=== PATIENT | male | born 1960 | race Caucasian/White ===

== ENCOUNTER 2018-09-18 22:02 | Emergency (ER) | payer BC ==
[2018-09-18] MEDS ORDERED: Adacel (T-DAP) 0.5 ML SYRINGE ONE (22:42)
--- NOTE | 2018-09-18 22:51 | RAD ---
2 views right humerus. HISTORY: Fall. Right humeral pain AP and lateral views right humerus demonstrates no evidence of right humeral fractures, subluxations or bony lesions. IMPRESSION: Normal AP and lateral views right humerus.
--- NOTE | 2018-09-18 22:53 | RAD ---
3 views right shoulder history: Right shoulder pain after fall. AP internally, externally scapular Y views right shoulder obtained. 3 views right shoulder demonstrates no evidence of right shoulder fractures, subluxations or bony les ions. IMPRESSION: Normal 3 views right shoulder.
== END 2018-09-18 23:10 | disposition home or self-care (01) ==
LOC: SCSER 22:02
DX: S43.401A Unspecified sprain of right shoulder joint, initial encounter (principal); S00.01XA Abrasion of scalp, initial encounter; S20.411A Abrasion of right back wall of thorax, initial encounter; T14.8XXA Other injury of unspecified body region, initial encounter; I10 Essential (primary) hypertension; Z79.899 Other long term (current) drug therapy; W19.XXXA Unspecified fall, initial encounter
CPT/HCPCS: 90471; 90715

== ENCOUNTER 2019-01-13 09:49 | Emergency (ER) | payer BC | END 2019-01-13 10:35 | disposition home or self-care (01) | LOC: SCSER 09:49 | DX: L03.114 Cellulitis of left upper limb (principal); I10 Essential (primary) hypertension; Z79.899 Other long term (current) drug therapy | CPT/HCPCS: 99283 ==

== ENCOUNTER 2019-03-03 06:20 | Outpatient (CLI) | payer BC ==
[2019-03-03 10:54] LABS: #Eosinphils 0.2 thou/uL (0.0-0.7); #Lymphocytes 2.5 thou/uL (1.20-3.40); #Monocytes 0.6 thou/uL (0.11-0.59); #Neutrophils 3.4 thou/uL (1.40-6.50); %Basophils 0.4 % (0.0-1.0); %Eosinophils 2.7 % (0.0-10.0); %Monocytes 8.7 % (0.0-10.0); %Neutrophils 51.2 % (42.0-75.0); Hemoglobin 14.5 g/dL (14.0-18.0); Mean Corpuscular HGB CONC 33.1 g/dL (32.0-36.0); Mean Corpuscular Hemoglobin 30.2 pg (27.0-31.0); Mean Corpuscular Volume 91.3 fL (78.0-98.0); Mean Platelet Volume 7.4 fL (7.4-10.4); Platelet Count 311 thou/uL (130-400); RBC Distribution Width 12.1 % (11.5-14.5); Red Blood Cell (RBC) Count 4.78 mill/uL (4.70-6.10); White Blood Cell (WBC) Count 6.7 thou/uL (4.8-10.8)
[2019-03-03 11:06] LABS: Bacteria/HPF None Seen HPF (None Seen); Bilirubin Negative (Negative); Blood, Urine Negative (Negative); Clarity Clear (Clear); Glucose, Urine (Dipstick) Normal (Negative); Leukocyte Negative Leu/uL (Negative); Nitrite Negative (Negative); Protein, Urine (Dipstick) Negative (Neg-Trace); RBC/HPF 0-3 HPF (0-3); Squamous Epithelial 0-3 HPF (0-3); Urobilinogen Normal mg/dL (Less than 2); WBC/HPF 0-3 HPF (0-3)
[2019-03-03 11:17] LABS: Anion Gap 14 mmol/L (10-20); BUN (Urea Nitrogen) 11 mg/dL (8.4-25.7); Calc. Creatinine Clearance 0 mL/min (70-130); Calcium 9.7 mg/dL (7.8-10.44); Carbon Dioxide 24 mmol/L (22-29); Chloride 106 mmol/L (98-107); Estimated GFR-MDRD 88; Glucose 95 mg/dL (70-105); Potassium 4.1 mmol/L (3.5-5.1); Sodium 140 mmol/L (136-145)
--- NOTE | 2019-03-03 17:26 | EKG ---
Test Reason : Blood Pressure : / mmHG Vent. Rate : 076 BPM Atrial Rate : 076 BPM P-R Int : 118 ms QRS Dur : 086 ms QT Int : 368 ms P-R-T Axes : 026 018 -04 degrees QTc Int : 414 ms Normal sinus rhythm Minimal voltage criteria for LVH, may be normal variant Nonspecific ST-T changes When compared with ECG of 15-MAY-2004 17:06, Vent. rate has decreased BY [address] Dawna KAN ([id number]) on 03/03/2019 5:26:08 PM Referred By: NORMAN Confirmed By:DR. Dawna KAN
== END 2019-03-03 06:21 | disposition home or self-care (01) ==
LOC: LABBT 06:20
PROVIDERS: ATTEND Orthopaedic Surgery
DX: Z01.818 Encounter for other preprocedural examination (principal); M17.12 Unilateral primary osteoarthritis, left knee
CPT/HCPCS: 80048; 81001; 85025; 85610; 87081; 93005; 93010

== ENCOUNTER 2019-03-03 08:45 | Inpatient (IN) | payer BC ==
[2019-03-03 09:13] VITALS: BMI 48.6
[2019-03-15] MEDS ORDERED: Sodium Chloride 0.9% 100 ML ONE (05:53)
[2019-03-15] MEDS ORDERED: Tranexamic Acid 1,000 MG/10 ML VIAL ONE (05:53)
[2019-03-15] MEDS ORDERED: Midazolam HCl 2 mg/2 ml Vial ONE (06:02)
[2019-03-15] MEDS ORDERED: Fentanyl 100 MCG/2 ML VIAL ONE ×5 (06:02→09:28)
[2019-03-15] MEDS ORDERED: Lidocaine 1% (PF) 30 ML VIAL ONE (06:30)
[2019-03-15] MEDS ORDERED: Promethazine HCl 25 MG/ML VIAL IM PRN ×3 (06:40→10:17)
[2019-03-15] MEDS ORDERED: Ondansetron PF 4 MG/2 ML Vial IVP PRN ×2 (06:40→06:52)
[2019-03-15] MEDS ORDERED: traMADol HCl 50 MG TAB PO PRN ×2 (06:40)
[2019-03-15] MEDS ORDERED: Zolpidem Tartrate 5 MG TAB PO PRN ×2 (06:40→06:52)
[2019-03-15] MEDS ORDERED: Ropivacaine HCl/PF 250 ML in Premix Bag 1 BAG NERVE BLCK SCH (06:40)
[2019-03-15] MEDS ORDERED: HYDROcodone/Acetaminophen 10/325 mg Tablet PO PRN ×2 (06:40)
[2019-03-15] MEDS ORDERED: Fentanyl 100 MCG/2 ML VIAL IV PRN (06:41)
[2019-03-15] MEDS ORDERED: Acetaminophen 325 MG TAB PO PRN (06:52)
[2019-03-15] MEDS ORDERED: diphenhydrAMINE 25 MG CAP PO PRN (06:52)
[2019-03-15] MEDS ORDERED: Non-Formulary Item 1 EACH (Phentermine Hcl [Phentermine Hcl] 37.5 MG) PO SCH (09:00)
[2019-03-15] MEDS ORDERED: PHENTERMINE HCL 37.5 MG PO SCH (09:00)
--- NOTE | 2019-03-15 09:24 | RAD ---
XR Knee Lt 2 View History: Postop total knee Comparison: None. Findings: Satisfactory appearance left total knee arthroplasty and patellar resurfacing. Expected pos toperative gas and edema. Impression: Satisfactory postoperative appearance.
[2019-03-15] MEDS ORDERED: PROPOFOL 200 MG/20 ML VIAL ONE (10:14)
[2019-03-15] MEDS ORDERED: Lidocaine 1% PF 5 ML VIAL ONE (10:14)
[2019-03-15] MEDS ORDERED: Metoclopramide HCl 10 MG/2 ML VIAL ONE (10:14)
[2019-03-15] MEDS ORDERED: Ropivacaine 0.5% HCl/PF (150 MG/30 ML VIAL) ONE (10:14)
[2019-03-15] MEDS ORDERED: Dexamethasone 20 MG/5 ML VIAL ONE (10:14)
[2019-03-15] MEDS ORDERED: Ropivacaine 0.2% HCl/PF (40 MG/20 ML VIAL) ONE (10:14)
[2019-03-15] MEDS ORDERED: PHENYLEPHRINE-NS 100 MCG/ML 10 ML SYRINGE ONE (10:14)
[2019-03-15] MEDS ORDERED: Ondansetron PF 4 MG/2 ML Vial ONE (10:14)
[2019-03-15] MEDS ORDERED: PACU-Morphine 4MG/ML VIAL SLOW IVP PRN (10:17)
[2019-03-15] MEDS ORDERED: Promethazine HCl 25 MG/ML VIAL SLOW IVP PRN (10:17)
[2019-03-15] MEDS ORDERED: Ondansetron HCl/PF 4 MG/2 ML Vial IVP PRN (10:17)
[2019-03-15] MEDS: Sodium Chloride 0.9% 1,000 ML IV SCH ×2 (10:59→17:35)
[2019-03-15] MEDS: Multivitamin W/ Minerals 1 TAB PO SCH (10:59)
[2019-03-15] MEDS: Senokot S 8.6-50 MG TAB PO SCH ×2 (10:59→20:27)
[2019-03-15] MEDS: Ferrous Gluconate 324 MG TAB PO SCH ×2 (10:59→20:27)
[2019-03-15] MEDS: Aspirin 81 mg Enteric Coated Tablet PO SCH ×2 (10:59→20:27)
[2019-03-15] MEDS: Ketorolac Tromethamine 30 MG/ML VIAL IVP SCH ×3 (11:27→23:26)
--- NOTE | 2019-03-15 13:00 | PDOC.HOSPP ---
- Subjective Encounter Date: 03/15/19 Encounter Time: 12:30 Subjective: pt up in bed has some pain to his left knee. - Objective Vital Signs & Weight: Vital Signs (12 hours) Temp Pulse Resp BP Pulse Ox 03/15/19 11:15 96.8 F L 73 16 145/86 H 98 03/15/19 11:00 95 Weight Weight 320 lb Hospitalist ROS - Review of Systems Respiratory: denies: cough, dry, shortness of breath, hemoptysis, SOB with excertion, pleuritic pain, sputum, wheezing, other Cardiovascular: denies: chest pain, palpitations, orthopnea, paroxysmal noc. dyspnea, edema, light headedness, other Gastrointestinal: denies: nausea, vomiting, abdominal pain, diarrhea, constipation, melena, hematochezia, other - Medication Medications: Active Medications Generic Name Dose Route Start Last Admin Trade Name Freq PRN Reason Stop Dose Admin Aspirin 81 mg 03/15/19 09:00 03/15/19 10:59 Ecotrin PO Not Given BID [facility] Ferrous Gluconate 324 mg 03/15/19 09:00 03/15/19 10:59 Fergon PO Not Given BID [facility] Sodium Chloride 1,000 mls @ 100 mls/hr 03/15/19 07:00 03/15/19 10:59 Normal Saline 0.9% IV Not Given .Q10H [facility] Iron/Minerals/Multivitamins 1 tab 03/15/19 09:00 03/15/19 10:59 Theragran M PO Not Given DAILY [facility] Ketorolac Tromethamine 30 mg 03/15/19 12:00 03/15/19 11:27 Toradol IVP 03/17/19 06:01 30 mg Q6HR [facility] Administration Senna/Docusate Sodium 2 tab 03/15/19 09:00 03/15/19 10:59 Senokot S PO Not Given BID [facility] Sodium Chloride 10 ml 03/15/19 09:00 03/15/19 11:00 Flush - Normal Saline IVF Not Given Q12HR [facility] - Exam Neck: negative: supple, symmetric, no JVD, no thyromegaly, no lymphadenopathy, no carotid bruit, JVD Heart: negative: RRR, no murmur, no gallops, no rubs, normal peripheral pulses, irregular, diminshed peripheral pulses, murmur present, II/IV, III/IV Respiratory: negative: CTAB, no wheezes, no rales, no ronchi, normal chest expansion, no tachypnea, normal percussion, rales, rhonchi, tachypneic, wheezes Hosp A/P (1) HTN (hypertension) Code(s): I10 - ESSENTIAL (PRIMARY) HYPERTENSION Status: Acute (2) Obesity Code(s): E66.9 - OBESITY, UNSPECIFIED Status: Acute (3) Hyperlipidemia Code(s): E78.5 - HYPERLIPIDEMIA, UNSPECIFIED Status: Acute - Plan will continue home meds. asa for dvt ppx. pt does not use cpap at night.
[2019-03-15] MEDS ORDERED: CEFAZOLIN 2 GM in Premix Bag 1 BAG IVPB SCH (14:00)
--- NOTE | 2019-03-15 14:59 | OP ---
DATE OF PROCEDURE: 03/15/2019 PREOPERATIVE DIAGNOSIS: End-stage tricompartmental osteoarthritis, left knee. POSTOPERATIVE DIAGNOSIS: End-stage tricompartmental osteoarthritis, left knee. PROCEDURE PERFORMED: Cemented cruciate-sparing computer-assisted navigated left total knee arthroplasty. CAFE COOK: Silviano Hernández PA-C. ANESTHESIA: General via LMA augmented with indwelling adductor canal block and a single-shot sciatic block. COMPONENTS USED: [employer] Triathlon size 5 cemented cruciate-sparing femoral component with a primary cemented size 5 tibial baseplate, 9 mm polyethylene fixed bearing insert, A29 patella button. TOURNIQUET TIME: 51 minutes. ESTIMATED BLOOD LOSS: Less than 100. INPUT: 1100 mL of crystalloid. OUTPUT: None measured. No Ross placed. DRAINS: None. SPECIMENS: None. COMPLICATIONS: None. COUNTS: Severe degenerative tricompartmental disease, [id number] arthrosis, periarticular osteophyte formation, large serous effusion, hypertrophic synovium and changes consistent with degenerative genu varum. INDICATION FOR SURGERY: Baljeet is a 59-year-old white male, who has had progressive left knee pain and problems with standing and walking for the last 5 to 7 years. He has failed conservative management and elected to proceed with total knee arthroplasty as definitive treatment. PROCEDURE IN DETAIL: After informed consent was obtained in the preoperative holding area, the patient was taken to the operative suite where general anesthesia was induced. Once adequate level of general anesthesia was obtained, the patient was positioned and a well-padded tourniquet was placed around the left proximal thigh. The left lower extremity was then prepped and draped in the usual sterile fashion. Prior to exsanguination, a time-out was called and all members of the surgical team agreed upon site, surgeon, and patient. The extremity was then exsanguinated and the tourniquet was raised. A midline longitudinal incision was then made directly over the patella extending 2 fingerbreadths above the superior pole of the patella and 2 fingerbreadths inferior to the inferior patellar pole of the patella. Deeper subcutaneous layers were dissected sharply and local bleeding was controlled with Bovie electrocautery. A quad tendon longitudinal split was then made sharply and a median parapatellar arthrotomy was carried out both sharp and with Bovie electrocautery, carried down to 1 fingerbreadth medial to the tibial tubercle. The knee was then placed into flexion and the patella was everted nicely, and a copious fat pad ectomy was performed allowing for greater exposure of the tibia. The computer-assisted distal femoral fiducial was then placed and pinned firmly, and the distal femoral cutting guide was pinned firmly into place. The oscillating saw was then used to remove the appropriate amount of bone. The 4-in-1 cutting block was then placed on the distal femur and the oscillating saw was used to remove the appropriate amount of bone off the anterior, posterior, and chamfer cuts. After completion of bone cuts, the anterior cruciate ligament was resected sharply and the posterior cruciate ligament retractor was placed and the tibia was subluxed for better exposure. Partial meniscectomies were carried out, and the tibial computer-assisted fiducial was pinned, and the cutting guide was placed. Oscillating saw was then used to remove the bone, with Hohmann retractors used to take care and protect the collateral ligaments. After the tibial resection was performed, a laminar beauty parlor cleaner was placed in between the freshened bone cuts. The knee placed at 90 degrees and further bilateral meniscectomies were carried out, and the curved osteotome and curettage were used to remove any excess bone spurs in the posterior compartment. The trial femoral component, tibial baseplate were placed with the appropriate polyethylene trial insert with an appropriate polyethylene spacer and patellar button. The knee was taken through full range of motion with flexion and extension from 0 to 90 degrees and patellar broach squarely in the trochlea without any squinting or subluxation noted. The knee was also stable to varus and valgus stressing at 0, 15, 45, and 90 degrees of flexion. The drawer was negative. All trial components were then removed and the keel punch was used to provide the appropriate defect in the tibia with a mallet. The freshened bone cuts were copiously irrigated with pulsatile lavage of about 1.5 L to remove all excess debris. The freshened bone cuts were then dried with suction and lap sponge. The knee was placed in flexion and retractors were placed to provide access to all bone cuts. Tobramycin-impregnated methyl methacrylate cement was then placed on the freshened bone cuts and implants which were malleted firmly into place. Curettage and [place] elevators were used to remove any excess bone cement. The knee was placed into full extension and the patellar button was placed under compression, and the cement was allowed to cure. Once completed, the components were again taken through full range of motion and copious irrigation of the knee was carried out with another liter of normal saline. All components were inspected fully with full range of motion and varus and valgus stressing. There was no laxity noted and full extension was observed clinically. Primary closure was accomplished with #2 interrupted Vicryl stitch of the arthrotomy defect. This was oversewn with a #2 running Quill barbed stitch. The gravitational platelet system was then injected into the arthrotomy prior to closure. The subcutaneous layer was then closed with a running 0 barbed Monocryl stitch and skin closure accomplished with a running subcuticular 3-0 Monocryl barbed Quill stitch and augmented with cement on the skin. Tourniquet was lowered. Good spontaneous return of distal pulses was noted clinically and a sterile dressing was applied to the incision. The procedure was terminated without any complications. The patient was awakened in the operative suite and the patient was taken to the recovery room in stable condition. Job ID: [id number]
[2019-03-15] MEDS: CEFAZOLIN 2 GM in Premix Bag 1 BAG IVPB SCH ×2 (17:00→23:25)
[2019-03-15] MEDS: Amlodipine 5 mg/Benazepril 20 mg CAP PO SCH (20:27)
[2019-03-15] MEDS ORDERED: Amlodipine 5 mg/Benazepril 20 mg CAP PO SCH (21:00)
[2019-03-16] MEDS: Sodium Chloride 0.9% 1,000 ML IV SCH ×3 (05:30→23:54)
[2019-03-16 05:37] LABS: Hemoglobin 12.1 g/dL (14.0-18.0); Mean Corpuscular Hemoglobin 31.4 pg (27.0-31.0); Mean Corpuscular Volume 89.7 fL (78.0-98.0); Mean Platelet Volume 7.3 fL (7.4-10.4); Platelet Count 241 thou/uL (130-400); RBC Distribution Width 11.9 % (11.5-14.5); Red Blood Cell (RBC) Count 3.86 mill/uL (4.70-6.10); White Blood Cell (WBC) Count 10.1 thou/uL (4.8-10.8)
[2019-03-16] MEDS: Ketorolac Tromethamine 30 MG/ML VIAL IVP SCH ×4 (05:56→23:55)
[2019-03-16] MEDS: Aspirin 81 mg Enteric Coated Tablet PO SCH ×2 (09:10→20:46)
[2019-03-16] MEDS: Senokot S 8.6-50 MG TAB PO SCH ×2 (09:10→20:46)
[2019-03-16] MEDS: Multivitamin W/ Minerals 1 TAB PO SCH (09:10)
[2019-03-16] MEDS: Ferrous Gluconate 324 MG TAB PO SCH ×2 (09:10→20:45)
--- NOTE | 2019-03-16 09:28 | PRG ---
DATE OF SERVICE: 03/16/2019 SUBJECTIVE: Baljeet is a 59-year-old male, postop day 1 from left total knee arthroplasty. He is doing very well. He is comfortable. OBJECTIVE: VITAL SIGNS: Temperature 98.5, pulse 70, respiratory rate 16, and blood pressure 118/80. GENERAL: He is alert and oriented to person, place, time, and situation. Responsive and appropriate with examiner. Grossly nonfocal. EXTREMITIES: Incision is clean. No strike through, and he is neurovascularly intact in the left lower extremity. LABORATORY DATA: Hemoglobin and hematocrit, 12.1 and 34.6. IMPRESSION: A 59-year-old male, postop day 1, left total knee arthroplasty, doing very well. PLAN: Continue current care. Initiate physical therapy. Probable discharge to home tomorrow. Job ID: [id number]
[2019-03-16] MEDS: Amlodipine 5 mg/Benazepril 20 mg CAP PO SCH (20:48)
[2019-03-17] MEDS: Ketorolac Tromethamine 30 MG/ML VIAL IVP SCH (05:26)
[2019-03-17 05:49] LABS: Hemoglobin 12.1 g/dL (14.0-18.0); Mean Corpuscular HGB CONC 35.6 g/dL (32.0-36.0); Mean Corpuscular Hemoglobin 31.9 pg (27.0-31.0); Mean Corpuscular Volume 89.6 fL (78.0-98.0); Mean Platelet Volume 7.1 fL (7.4-10.4); Platelet Count 229 thou/uL (130-400); RBC Distribution Width 11.8 % (11.5-14.5); White Blood Cell (WBC) Count 8.8 thou/uL (4.8-10.8)
[2019-03-17] MEDS: Multivitamin W/ Minerals 1 TAB PO SCH (08:31)
[2019-03-17] MEDS: Aspirin 81 mg Enteric Coated Tablet PO SCH (08:31)
[2019-03-17] MEDS: Senokot S 8.6-50 MG TAB PO SCH (08:31)
[2019-03-17] MEDS: Ferrous Gluconate 324 MG TAB PO SCH (08:31)
[2019-03-17] MEDS: Sodium Chloride 0.9% 1,000 ML IV SCH (09:00)
[2019-03-17 12:20] VITALS: BP 152/82; TEMP 98.4
== END 2019-03-17 13:15 | disposition home or self-care (01) | DRG 470 ==
LOC: SJJU 03-15 05:28
PROVIDERS: ADMIT Orthopaedic Surgery; ATTEND Orthopaedic Surgery
PROC: 0SRD0J9 Replacement of Left Knee Joint with Synthetic Substitute, Cemented, Open Approach (ICD-10-PCS; principal; 2019-03-15)
PROC: 8E0YXBZ Computer Assisted Procedure of Lower Extremity (ICD-10-PCS; 2019-03-15)
DX: M17.12 Unilateral primary osteoarthritis, left knee (principal); Z68.42 Body mass index [BMI] 45.0-49.9, adult; I10 Essential (primary) hypertension; E66.01 Morbid (severe) obesity due to excess calories; M21.162 Varus deformity, not elsewhere classified, left knee; E78.5 Hyperlipidemia, unspecified; Z79.899 Other long term (current) drug therapy
CPT/HCPCS: 36415; 85027; C1713; C1776; J0690; J1100; J1885; J2001; J2250; J2405; J2704; J2765; J2795; J3010; J3490

== ENCOUNTER 2020-09-03 08:45 | Outpatient (CLI) | payer BC ==
[2020-09-03 18:28] LABS: SARS-CoV-2 PCR by NAA Not Detected (NotDetected)
== END 2020-09-03 08:46 | disposition home or self-care (01) ==
LOC: LABBT 08:45
PROVIDERS: ATTEND Internal Medicine
DX: Z01.812 Encounter for preprocedural laboratory examination (principal); Z12.11 Encounter for screening for malignant neoplasm of colon; Z20.822 Contact with and (suspected) exposure to COVID-19
CPT/HCPCS: 87635; U0003; U0005

== ENCOUNTER 2020-09-06 06:52 | Day surgery (SDC) | payer BC ==
[2020-09-05 10:20] VITALS: BMI 50.1
[2020-09-06] MEDS ORDERED: PROPOFOL 200 MG/20 ML VIAL ONE (08:22)
== END 2020-09-06 09:43 | disposition home or self-care (01) ==
LOC: SDC 06:52
PROVIDERS: ATTEND Internal Medicine
PROC: 0DJD8ZZ Inspection of Lower Intestinal Tract, Via Natural or Artificial Opening Endoscopic (ICD-10-PCS; principal; 2020-09-06)
DX: Z12.11 Encounter for screening for malignant neoplasm of colon (principal); K64.4 Residual hemorrhoidal skin tags; K64.8 Other hemorrhoids; K57.30 Diverticulosis of large intestine without perforation or abscess without bleeding; Z79.899 Other long term (current) drug therapy
CPT/HCPCS: J2704

== ENCOUNTER 2021-05-02 10:45 | Outpatient (CLI) | payer BC ==
[2021-05-02 12:05] LABS: Bilirubin Neg (Negative); Blood, Urine Negative (Negative); Clarity Clear (Clear); Glucose, Urine (Dipstick) Normal (Negative); Ketone, Urine Negative (Negative); Leukocyte Negative (Negative); Nitrite Negative (Negative); Protein, Urine (Dipstick) Negative (Neg-Trace); Urobilinogen Normal mg/dL (Less than 2)
[2021-05-02 12:08] LABS: #Eosinphils 0.1 10x3/uL (0.0-0.5); #Monocytes 0.6 10x3/uL (0.0-1.1); #Neutrophils 3.1 10x3/uL (1.5-8.4); %Basophils 0.5 % (0.0-2.0); %Lymphocytes 34.1 % (18.0-47.0); %Monocytes 10.5 % (0.0-10.0); %Neutrophils 52.7 % (40.0-75.0); Hemoglobin 14.8 g/dL (13.5-17.5); Mean Corpuscular HGB CONC 34.5 g/dL (32.0-36.0); Mean Corpuscular Hemoglobin 30.7 pg (27.0-33.0); Mean Platelet Volume 9.5 fl (7.4-10.4); Platelet Count 319 10x3/uL (150-450); RBC Distribution Width 12.9 % (11.5-14.5); Red Blood Cell (RBC) Count 4.82 10x6/uL (4.32-5.72); White Blood Cell (WBC) Count 5.9 10x3/uL (3.5-10.5)
[2021-05-02 12:21] LABS: Prothrombin Time 10.9 sec (9.5-12.1)
[2021-05-02 12:24] LABS: Anion Gap 11 mmol/L (10-20); BUN (Urea Nitrogen) 13 mg/dL (8.4-25.7); Calc. Creatinine Clearance 0 mL/min (70-130); Calcium 9.9 mg/dL (7.8-10.44); Carbon Dioxide 28 mmol/L (23-31); Chloride 106 mmol/L (98-107); Glucose 90 mg/dL (80-115); Potassium 4.7 mmol/L (3.5-5.1); Sodium 140 mmol/L (136-145)
[2021-05-03 01:32] LABS: SARS-CoV-2 PCR by NAA Not Detected (NotDetected)
== END 2021-05-02 10:46 | disposition home or self-care (01) ==
LOC: LABBT 10:45
PROVIDERS: ATTEND Orthopaedic Surgery
DX: Z01.818 Encounter for other preprocedural examination (principal); M17.11 Unilateral primary osteoarthritis, right knee; Z20.822 Contact with and (suspected) exposure to COVID-19
CPT/HCPCS: 80048; 81003; 85025; 85610; 87081; 93005; 93010; U0003; U0005

== ENCOUNTER 2021-05-07 06:26 | Observation (INO) | payer BC ==
[2021-05-07] MEDS ORDERED: Sodium Chloride 0.9% 100 ML ONE (07:32)
[2021-05-07] MEDS ORDERED: ceFAZolin 2 GM/DEX 5% 100 ML BAG ONE (07:32)
[2021-05-07] MEDS ORDERED: Tranexamic Acid 1,000 MG/10 ML VIAL ONE (07:32)
[2021-05-07] MEDS ORDERED: VANCOMYCIN 2 GRAM/400 ML BAG 2 GM in Premix Bag 1 BAG IVPB SCH (07:45)
[2021-05-07] MEDS ORDERED: Midazolam HCl 2 mg/2 ml Vial ONE (08:13)
[2021-05-07] MEDS ORDERED: Fentanyl 100 MCG/2 ML VIAL ONE ×4 (08:13→11:41)
[2021-05-07] MEDS ORDERED: Promethazine HCl 25 MG/ML VIAL IM PRN ×3 (08:54→11:10)
[2021-05-07] MEDS ORDERED: Zolpidem Tartrate 5 MG TAB PO PRN ×2 (08:54→09:30)
[2021-05-07] MEDS ORDERED: Fentanyl 100 MCG/2 ML VIAL SLOW IVP PRN (08:54)
[2021-05-07] MEDS ORDERED: Acetaminophen 325 MG TAB PO PRN (08:54)
[2021-05-07] MEDS ORDERED: HYDROcodone/Acetaminophen 10/325 mg Tablet PO PRN ×2 (08:54)
[2021-05-07] MEDS ORDERED: Ondansetron PF 4 MG/2 ML Vial IVP PRN ×2 (08:54→09:30)
[2021-05-07] MEDS ORDERED: diphenhydrAMINE 25 MG CAP PO PRN (08:54)
[2021-05-07] MEDS ORDERED: Bupivacaine PF 0.5% 30 ML VIAL ONE (09:16)
[2021-05-07] MEDS ORDERED: Fentanyl 100 MCG/2 ML VIAL IV PRN (09:20)
[2021-05-07] MEDS ORDERED: traMADol HCl 50 MG TAB PO PRN ×2 (09:30)
[2021-05-07] MEDS: Aspirin 81 mg Enteric Coated Tablet PO SCH ×2 (09:30→21:43)
[2021-05-07] MEDS ORDERED: Ropivacaine 0.2% 550 ML 550 ML NERVE BLCK SCH (09:30)
[2021-05-07] MEDS ORDERED: ePHEDrine 50 MG/ML VIAL ONE (09:34)
[2021-05-07] MEDS ORDERED: Lidocaine 1% PF 5 ML VIAL ONE (09:34)
[2021-05-07] MEDS ORDERED: Phenylephrine 10 MG/ML VIAL ONE (09:34)
[2021-05-07] MEDS ORDERED: PROPOFOL 200 MG/20 ML VIAL ONE (09:34)
[2021-05-07] MEDS ORDERED: Ondansetron PF 4 MG/2 ML Vial ONE ×2 (09:34→09:48)
[2021-05-07] MEDS ORDERED: Bupivacaine HCl 0.5%/Epinephrine 1:200,000/PF 30 ml Vial ONE (09:34)
[2021-05-07] MEDS ORDERED: Ondansetron HCl/PF 4 MG/2 ML Vial IVP PRN (11:10)
[2021-05-07] MEDS ORDERED: Promethazine HCl 25 MG/ML VIAL IVPB PRN (11:10)
[2021-05-07] MEDS: Sodium Chloride 0.9% 1,000 ML IV SCH ×2 (12:35→21:44)
[2021-05-07] MEDS ORDERED: Ketorolac Tromethamine 30 MG/ML VIAL IM SCH (14:00)
[2021-05-07] MEDS: Ketorolac Tromethamine 30 MG/ML VIAL IVP SCH ×3 (14:39→21:43)
[2021-05-07] MEDS ORDERED: ceFAZolin 2 GM/Dextrose 50 ML 2 GM in Premix Bag 1 BAG IVPB SCH ×2 (16:00→23:59)
[2021-05-07] MEDS ORDERED: MULTIVITAMIN WITH MINERALS PO SCH (21:00)
[2021-05-07] MEDS: Amlodipine 5 mg/Benazepril 20 mg CAP PO SCH (22:00)
[2021-05-08] MEDS: Ketorolac Tromethamine 30 MG/ML VIAL IVP SCH ×4 (02:09→21:33)
[2021-05-08] MEDS: Sodium Chloride 0.9% 1,000 ML IV SCH ×2 (05:49→15:55)
[2021-05-08 06:42] LABS: Hemoglobin 12.3 g/dL (14.0-18.0); Mean Corpuscular HGB CONC 35.5 g/dL (32.0-36.0); Mean Corpuscular Hemoglobin 32.7 pg (27.0-31.0); Mean Corpuscular Volume 92.2 fL (78.0-98.0); Mean Platelet Volume 6.9 fL (7.4-10.4); Platelet Count 224 thou/uL (130-400); RBC Distribution Width 11.8 % (11.5-14.5); Red Blood Cell (RBC) Count 3.76 mill/uL (4.70-6.10); White Blood Cell (WBC) Count 7.8 thou/uL (4.8-10.8)
[2021-05-08] MEDS: Multivitamin W/ Minerals 1 TAB PO SCH (09:37)
[2021-05-08] MEDS: Aspirin 81 mg Enteric Coated Tablet PO SCH ×2 (09:37→21:32)
[2021-05-08] MEDS: Senokot S 8.6-50 MG TAB PO SCH ×2 (09:37→21:32)
[2021-05-08] MEDS: Ferrous Gluconate 324 MG TAB PO SCH ×2 (09:39→18:26)
[2021-05-08] MEDS: HYDROcodone/Acetaminophen 10/325 mg Tablet PO PRN ×2 (12:05→18:25)
[2021-05-08] MEDS: Amlodipine 5 mg/Benazepril 20 mg CAP PO SCH (21:32)
[2021-05-09 00:22] VITALS: TEMP 98.1
[2021-05-09] MEDS: Sodium Chloride 0.9% 1,000 ML IV SCH ×2 (02:00→12:25)
[2021-05-09] MEDS: Ketorolac Tromethamine 30 MG/ML VIAL IVP SCH ×3 (02:01→08:22)
[2021-05-09] MEDS: HYDROcodone/Acetaminophen 10/325 mg Tablet PO PRN ×3 (04:22→12:25)
[2021-05-09] MEDS: Aspirin 81 mg Enteric Coated Tablet PO SCH (08:21)
[2021-05-09] MEDS: Senokot S 8.6-50 MG TAB PO SCH (08:21)
[2021-05-09] MEDS: Ferrous Gluconate 324 MG TAB PO SCH (08:21)
[2021-05-09] MEDS: Multivitamin W/ Minerals 1 TAB PO SCH (08:22)
[2021-05-09 11:42] VITALS: BP 112/69
[2021-05-09 14:37] VITALS: BMI 41.9
== END 2021-05-09 13:10 | disposition home or self-care (01) ==
LOC: SDC 06:26 → SURG A 08:54 → SDC 13:12
PROVIDERS: ADMIT Orthopaedic Surgery; ATTEND Orthopaedic Surgery
PROC: 0SRC0J9 Replacement of Right Knee Joint with Synthetic Substitute, Cemented, Open Approach (ICD-10-PCS; principal; 2021-05-07)
PROC: 8E0YXBZ Computer Assisted Procedure of Lower Extremity (ICD-10-PCS; 2021-05-07)
PROC: 3E0T3BZ Introduction of Anesthetic Agent into Peripheral Nerves and Plexi, Percutaneous Approach (ICD-10-PCS; 2021-05-07)
DX: M17.11 Unilateral primary osteoarthritis, right knee (principal); I10 Essential (primary) hypertension; E78.5 Hyperlipidemia, unspecified; M10.9 Gout, unspecified; E66.9 Obesity, unspecified; Z68.42 Body mass index [BMI] 45.0-49.9, adult; Z79.899 Other long term (current) drug therapy; Z96.652 Presence of left artificial knee joint
CPT/HCPCS: 36415; 85027; 96365; 96375; 96376; A4306; C1713; C1776; G0378; J0690; J1885; J2250; J2370; J2405; J2704; J2795; J3010; J3370; J3490; J7050; S0020

== ENCOUNTER 2022-06-22 18:03 | Emergency (ER) | payer BC ==
[~2022-06-22 18:03] MED LIST: Iopamidol-370 76% 500 ML 1 ML ONE
[2022-06-22] MEDS ORDERED: diphenhydrAMINE 12.5 MG/5 ML UDCUP ONE (18:42)
[2022-06-22] MEDS ORDERED: Metoclopramide HCl 10 MG/2 ML VIAL ONE (18:42)
[2022-06-22] MEDS ORDERED: diphenhydrAMINE 50 MG/ML VIAL ONE (18:43)
[2022-06-22 19:19] LABS: #Lymphocytes 1.2 thou/uL (1.20-3.40); #Monocytes 0.5 thou/uL (0.11-0.59); #Neutrophils 7.3 thou/uL (1.40-6.50); %Basophils 0.1 % (0.0-1.0); %Eosinophils 0.3 % (0.0-10.0); %Lymphocytes 13.7 % (21.0-51.0); %Monocytes 5.5 % (0.0-10.0); %Neutrophils 80.4 % (42.0-75.0); Hemoglobin 15.3 g/dL (14.0-18.0); Mean Corpuscular HGB CONC 36.9 g/dL (32.0-36.0); Mean Corpuscular Hemoglobin 33.1 pg (27.0-31.0); Mean Corpuscular Volume 89.6 fl (78.0-98.0); Mean Platelet Volume 7.5 fL (7.4-10.4); Platelet Count 250 10x3/uL (130-400); RBC Distribution Width 11.6 % (11.5-14.5); Red Blood Cell (RBC) Count 4.63 mill/uL (4.70-6.10); White Blood Cell (WBC) Count 9.1 10x3/uL (4.8-10.8)
[2022-06-22 19:27] LABS: ALT (SGPT) 21 U/L (8-55); AST (SGOT) 13 U/L (5-34); Albumin 4.2 g/dL (3.4-4.8); Alkaline Phosphatase 81 U/L (40-110); Anion Gap 13 mmol/L (10-20); BUN (Urea Nitrogen) 10 mg/dL (8.4-25.7); Bilirubin, Total 1.1 mg/dL (0.2-1.2); Calc. Creatinine Clearance 0 mL/min (70-130); Calcium 9.5 mg/dL (7.8-10.44); Carbon Dioxide 24 mmol/L (23-31); Chloride 101 mmol/L (98-107); Estimated GFR 99; Globulin 3.2 g/dL (2.4-3.5); Glucose 109 mg/dL (80-115); Potassium 3.6 mmol/L (3.5-5.1); Protein, Total 7.4 g/dL (5.8-8.1); Sodium 134 mmol/L (136-145)
[2022-06-22 20:37] LABS: INR-International Normal Ratio 1.1; Prothrombin Time 14.2 sec (12.0-14.7)
[2022-06-22 20:38] LABS: PTT 24.7 sec (22.9-36.1)
[2022-06-22] MEDS ORDERED: Labetalol HCl 100 MG/20 ML VIAL ONE (20:49)
[2022-06-22] MEDS ORDERED: niMODipine 30 MG CAP PO SCH (21:00)
[2022-06-22 22:25] LABS: SARS-CoV-2 NAA Rapid Test DETECTED (NotDetected)
== END 2022-06-23 00:29 | disposition short-term general hospital (02) ==
LOC: ERS 18:03
DX: I60.2 Nontraumatic subarachnoid hemorrhage from anterior communicating artery (principal); I10 Essential (primary) hypertension; Z20.822 Contact with and (suspected) exposure to COVID-19
CPT/HCPCS: 36415; 70450; 70496; 70498; 71045; 80053; 85025; 85610; 85652; 85730; 93005; 96361; 96365; 96375; J1200; J2765; Q0163; Q9967; U0002

== ENCOUNTER 2023-01-30 17:00 | Outpatient (CLI) | payer BC | END 2023-01-30 17:01 | disposition home or self-care (01) | LOC: SLEEPLAB 17:00 | PROVIDERS: ATTEND Internal Medicine Critical Care Medicine | DX: G47.33 Obstructive sleep apnea (adult) (pediatric) (principal); R06.83 Snoring; E66.9 Obesity, unspecified | CPT/HCPCS: 95810 ==